=== PATIENT | male | born 1950 | race Caucasian/White ===

== ENCOUNTER 2020-03-01 09:49 | Outpatient (CLI) | payer OTHER, SELFPAY ==
[2020-03-01 10:41] LABS: Alanine Aminotransferase 24 U/L (4-50); Albumin Level 4.2 g/dL (3.5-5.1); Alkaline Phosphatase 77 U/L (38-126); Aspartate Amino Transferase 28 U/L (17-59); Bilirubin,Total 0.4 mg/dL (0.2-1.3); Blood Urea Nitrogen 10 mg/dL (9-20); Calcium 8.4 mg/dL (8.4-10.2); Carbon Dioxide 25 mmol/L (22-30); Chloride 107 mmol/L (98-107); Cholesterol 189 mg/dL (0-200); Estimated Glomerular Filt Rate > 60; Glucose 88 mg/dL (75-110); HDL Direct 54 mg/dL; Potassium 4.6 mmol/L (3.4-5.0); Sodium 138 mmol/L (137-145); Triglycerides 73 mg/dL (<150)
[2020-03-01 10:51] LABS: LDL Cholesterol Direct 120 mg/dL
[2020-03-01 11:09] LABS: Prostate Specific Antigen < 0.1 ng/mL (< OR = 4.0)
== END 2020-03-01 09:50 | disposition home or self-care (01) ==
PROVIDERS: PCP Internal Medicine; Visit Provider Nurse Practitioner
DX: E78.5 Hyperlipidemia, unspecified (principal); Z85.46 Personal history of malignant neoplasm of prostate
CPT/HCPCS: 36415; 80053; 80061; 84153

== ENCOUNTER 2020-04-20 07:38 | Outpatient (CLI) | payer OTHER, SELFPAY ==
--- NOTE | ~2020-04-20 | XR_ITS ---
EXAMINATION: XR shoulder RT min 2V DATE: 04/20/2020 07:59 INDICATION: Right shoulder pain. TECHNIQUE: 4 views of right shoulder were obtained. COMPARISON: None. FINDINGS: Bone alignment is normal. No fracture. There is mild osteoarthritis of glenohumeral joint a nd severe osteoarthritis of acromioclavicular joint. IMPRESSION: 1. Polyarticular osteoarthritis. Reviewed, dictated and finalized at location A.
--- NOTE | ~2020-04-20 | CT_ITS ---
EXAMINATION: CT lung screening EXAM DATE: 04/20/2020 08:06 INDICATION: Personal history of nicotine dependence. TECHNIQUE: Spiral low dose CT of the chest without contrast. Axial, coronal and sagittal images were reviewed. The dose-length product (DLP) for this examination was 81.59 mGy-cm. The exposure was ta ilored according to patient size (auto mA exposure control), and iterative reconstruction (ASIR) was used as additional dose reduction technique. There is no prior study for comparison. FINDINGS: There are 3 mm right lower lobe nodule on image 63 and 4 mm groundglass nodule on image 70 . Some linear right middle lobe scarring. There is mild to moderate emphysema and hyperinflation. Tra cheobronchial tree is patent. There is no mediastinal, hilar or axillary lymphadenopathy. There a re no pleural or pericardial effusions. There is no pneumothorax. Heart normal in size. There i s mild to moderate coronary arterial calcification, arterial sclerosis. There is duodenal diverticulu m. There is mild thoracic spondylosis without osteoblastic or osteolytic lesions identified. Old lef t 5th and 6th rib fractures posteromedially. IMPRESSION: Lung-RADS category 2, benign appearance or behavior (<1% chance of malignancy); recommend continued LDCT screening in 1 year. > Reviewed, dictated and finalized at location A.
== END 2020-04-20 07:39 | disposition home or self-care (01) ==
PROVIDERS: PCP Internal Medicine; Visit Provider Internal Medicine
DX: Z12.2 Encounter for screening for malignant neoplasm of respiratory organs (principal); Z87.891 Personal history of nicotine dependence; M19.011 Primary osteoarthritis, right shoulder
CPT/HCPCS: 73030; G0297

== ENCOUNTER 2020-06-30 14:41 | Outpatient (CLI) | payer OTHER, SELFPAY ==
--- NOTE | ~2020-06-30 | XR_ITS ---
EXAMINATION: XR wrist RT min 3V DATE: 06/30/2020 15:17 INDICATION: Chronic right wrist pain. Osteoarthritis. TECHNIQUE: 4 views of right wrist were obtained. COMPARISON: None. FINDINGS: Bone alignment is normal. No fracture. There is severe osteoarthritis of triscaphe joint an d mild osteoarthritis of first carpometacarpal joint and first and third metacarpophalangeal joints. IMPRESSION: 1. Polyarticular osteoarthritis. Reviewed, dictated and finalized at location A.
--- NOTE | ~2020-06-30 | XR_ITS ---
EXAMINATION: XR wrist LT min 3V DATE: 06/30/2020 15:17 INDICATION: Chronic left wrist pain. Osteoarthritis. TECHNIQUE: 4 views of left wrist were obtained. COMPARISON: None. FINDINGS: There is dorsal tilt of lunate, consistent with dorsal intercalated segmental instability. There is an old fracture of proximal pole of scaphoid with nonunion. The proximal fracture fragment d emonstrates bone loss and is small. There is severe osteoarthritis of radioscaphoid joint and mild os teoarthritis of lunate-capitate joint. There is mild osteoarthritis of first carpometacarpal joint an d first and third metacarpophalangeal joints. IMPRESSION: 1. Scaphoid nonunion advanced collapse (SNAC). Reviewed, dictated and finalized at location A.
== END 2020-06-30 14:42 | disposition home or self-care (01) ==
PROVIDERS: PCP Internal Medicine; Visit Provider Plastic Surgery
DX: M19.031 Primary osteoarthritis, right wrist (principal); M19.032 Primary osteoarthritis, left wrist
CPT/HCPCS: 73110

== ENCOUNTER 2020-07-26 09:50 | Outpatient (CLI) | payer OTHER, SELFPAY ==
--- NOTE | 2020-07-26 11:30 | NEURO_ITS ---
Patient Number: [id number] Impression: # Complains of numbness of hands, left more than right. # Left Carpal Tunnel Syndrome. # Bilateral ulnar neuropathy around the elbows. # Abnormal needle/EMG exam. # Clinical correlation recommended. Nerve Conduction Studies Anti Sensory Summary Table Stim Site NR Peak (ms) P-T Amp (?V) Site1 Site2 Delta-P (ms) Dist (cm) Roberto (m/s) Left Median Anti Sensory (2-3nd Digit) Wrist 3.8 46.2 Wrist 2-3nd Digit 3.8 14.0 37 Wrist 3.9 23.2 Wrist 2-3nd Digit 3.8 14.0 37 Right Median Anti Sensory (2-3nd Digit) Wrist 3.3 45.0 Wrist 2-3nd Digit 3.3 14.0 42 Wrist 3.3 49.4 Wrist 2-3nd Digit 3.3 14.0 42 Left Radial Anti Sensory (Base 1st Digit) Wrist 2.0 30.0 Wrist Base 1st Digit 2.0 0.0 Right Radial Anti Sensory (Base 1st Digit) Wrist 2.4 18.0 Wrist Base 1st Digit 2.4 0.0 Left Ulnar Anti Sensory (5th Digit) Wrist 2.4 55.4 Wrist 5th Digit 2.4 14.0 58 Right Ulnar Anti Sensory (5th Digit) Wrist 2.6 49.0 Wrist 5th Digit 2.6 14.0 54 Motor Summary Table Stim Site NR Onset (ms) O-P Amp (mV) Site1 Site2 Delta-0 (ms) Dist (cm) Roberto (m/s) Left Median Motor (Abd Poll Brev) Wrist 4.6 2.1 Elbow Wrist 4.5 26.0 58 Elbow 9.1 2.5 Right Median Motor (Abd Poll Brev) Wrist 3.1 1.5 Elbow Wrist 4.5 25.0 56 Elbow 7.6 0.6 Left Ulnar Motor (Abd Dig Minimi) Wrist 2.7 7.1 A Elbow Wrist 5.3 26.0 49 A Elbow 8.0 5.8 B Elbow Wrist 4.1 23.0 56 B Elbow 6.8 6.0 Right Ulnar Motor (Abd Dig Minimi) Wrist 2.2 4.8 A Elbow Wrist 5.5 27.0 49 A Elbow 7.7 4.4 B Elbow Wrist 3.9 19.0 49 B Elbow 6.1 4.0 F Wave Studies NR F-Lat (ms) L-R F-Lat (ms) Left Median (Mrkrs) (Abd Poll Brev) 29.73 0.45 Right Median (Mrkrs) (Abd Poll Brev) 29.28 0.45 Left Ulnar (Mrkrs) (Abd Dig Min) 29.30 0.98 Right Ulnar (Mrkrs) (Abd Dig Min) 30.28 0.98 EMG Side Muscle Nerve Root Ins Act Fibs Amp Dur Recrt Comment Right 1stDorInt Ulnar C8-T1 Nml Nml Nml Nml Nml Right Ext Indicis Radial (Post Int) C7-8 Nml Nml Nml Nml Nml Right Ext Digitorum Radial (Post Int) C7-8 Nml Nml Nml Nml Nml Right BrachioRad Radial C5-6 Nml Nml Nml Nml Nml Right PronatorTeres Median C6-7 Nml Nml Nml Nml Nml Right Abd Poll Brev Median C8-T1 Nml Nml Nml Nml Nml Left 1stDorInt Ulnar C8-T1 Nml Nml Nml >12ms Reduced Left Ext Indicis Radial (Post Int) C7-8 Nml Nml Nml Nml Nml Left Ext Digitorum Radial (Post Int) C7-8 Nml Nml Nml Nml Nml Left BrachioRad Radial C5-6 Nml Nml Nml Nml Nml Left PronatorTeres Median C6-7 Nml Nml Nml Nml Nml Left Abd Poll Brev Median C8-T1 Nml Nml Nml >12ms Reduced Right ABD Dig Min Ulnar C8-T1 Nml Nml Nml Nml Nml Left ABD Dig Min Ulnar C8-T1 Nml Nml Nml >12ms Reduced MTDD
== END 2020-07-26 09:51 | disposition home or self-care (01) ==
PROVIDERS: PCP Internal Medicine; Visit Provider Plastic Surgery
DX: G56.02 Carpal tunnel syndrome, left upper limb (principal); G56.23 Lesion of ulnar nerve, bilateral upper limbs
CPT/HCPCS: 95886; 95911

== ENCOUNTER 2020-08-31 07:45 | Outpatient (CLI) | payer OTHER, MEDICARE, SELFPAY ==
--- NOTE | 2020-08-31 07:56 | ECG_ITS ---
Measurements Intervals [place] Rate: 55 P: -21 KS: 149 QRS: -45 QRSD: 84 T: 30 QT: 417 QTc: 402 Interpretive Statements SINUS BRADYCARDIA RSR' IN V1 OR V2, CONSIDER RIGHT VENTRICULAR HYPERTROPHY OR RIGHT VCD LEFT ANTERIOR FASCICULAR BLOCK BASELINE ARTIFACT- I, II, III, AVR, AVL, AVF, V1-V2 ABNORMAL ECG Electronically Signed On 08-31-2020 8:32:31 [employer] OPERATOR by Eliecer Schmidt D.O.
== END 2020-08-31 07:46 | disposition home or self-care (01) ==
PROVIDERS: PCP Internal Medicine; Visit Provider Plastic Surgery
DX: Z01.818 Encounter for other preprocedural examination (principal); F17.200 Nicotine dependence, unspecified, uncomplicated; I44.4 Left anterior fascicular block
CPT/HCPCS: 93005

== ENCOUNTER 2020-09-02 00:40 | Outpatient (CLI) | payer OTHER, MEDICARE, SELFPAY ==
[2020-09-02 19:13] LABS: SARS-CoV-2 RNA PCR Negative
== END 2020-09-02 00:41 | disposition home or self-care (01) ==
LOC: ANHCOVIDDT 00:41
PROVIDERS: PCP Internal Medicine; Visit Provider Plastic Surgery
DX: Z01.818 Encounter for other preprocedural examination (principal); Z20.828 Contact with and (suspected) exposure to other viral communicable diseases
CPT/HCPCS: 87635; C9803; U0003

== ENCOUNTER 2020-09-06 01:04 | Day surgery (SDC) | payer OTHER, MEDICARE, SELFPAY ==
[2020-08-30 14:36] VITALS: BMI 24.8
--- NOTE | 2020-09-05 09:52 | WPDANESEPPF ---
Anes - Initial Pre Proc Eval Procedure: Operation Date: 09/06/20 08:30 Proposed Procedures p Left Open Carpal Tunnel Release, Left Ulnar Neuroplasty At The Elbow - Frandy Gunderson MD Date/Time: 09/05/20 09:52 Surgeon: Frandy Gunderson MD Pre Op Diagnosis: Left Carpal & Cubital Tunnel Syndrome Patient Data Age: 70 Gender: M Height: 1.63 m Weight: 65.77 kg Allergies Allergy/AdvReac Type Severity Reaction Status Date / Time No Known Allergies Allergy Unknown Verified 08/30/20 14:15 Home Medications Medication Instructions Recorded Confirmed Type multivitamin 1 tablet PO DAILY 09/17/19 08/30/20 History sildenafil 100 mg tablet 100 mg PO PRN PRN 09/17/19 08/30/20 History diazepam 5 mg PO PRN PRN 08/30/20 08/30/20 History dextroamphetamine-amphetamine 10 10 mg PO BID #60 tablet 08/31/20 Rx mg tablet Patient hx anesthesia problems: none Family hx anesthesia problems: none PMFSH Past Medical History Medical History (Updated 09/05/20 @ 09:53 by Matthew Chaves MD) Alcohol abuse, uncomplicated Attention-deficit hyperactivity disorder, unspecified type (02/16/19) Enlarged prostate without lower urinary tract symptoms (luts) Gastroesophageal reflux disease History of prostate cancer Hyperlipidemia, unspecified Major depressive disorder, single episode, unspecified Nicotine dependence, unspecified, uncomplicated PTSD (post-traumatic stress disorder) Pure hypercholesterolemia Unspecified viral hepatitis C without hepatic coma Surgical History Surgical History H/O colonoscopy H/O esophagogastroduodenoscopy Social History Social History Smoking packs per day: 1 Smoking cigarettes per day: 20.0 Years smoked: 40 Smoking pack-years: 40.00 Smoking status: Current every day smoker Tobacco type: cigarettes Alcohol intake: current Drinks per week: 12 Substance use: current Substance use type: marijuana Other substance usage details: MARIJUANA DAILY FOR 3 YRS Living arrangements: with family Spiritual care concerns: No Anes - Eval Final PreProcedure Day of Procedure 09/05/20 09:52 Patient weight: normal Heart: regular rate and rhythm Lungs: clear to auscultation and normal air movement Airway: Mallampati scale class II Neurological: alert and oriented Last oral intake: >/= 8 hours ASA classification: III Emergent: no Anesthetic plan: proceed Anesthesia type and monitoring: general GIVS and LMA Informed Consent: The patient's anesthetic plan and its attendant risks and benefits were discussed with the patient/family/POA. Questions were solicited and answers provided to the satisfaction of the patient/family/POA.
[2020-09-06 06:24] VITALS: BP 116/62; PULSE 69; RESP 20; TEMP 35.9; O2SAT 98
[2020-09-06] MEDS: LACTATED RINGERS 1,000 ML 30 ML IV CONT (06:56)
--- NOTE | 2020-09-06 07:06 | WPDHPUPDATE1 ---
History and Physical Update Update Date/Time: 09/06/20 07:06 History and Physical has been reviewed, including an updated exam of the patient. There are NO changes in the patient's condition. Risks, benefits, and alternatives have been discussed and questions answered. Patient agrees to proceed with procedure.
[2020-09-06] MEDS: LIDO 1%/EPINEPHRINE 1:100,000 20 ML VIAL 10 ML INFILTRATE (08:53)
[2020-09-06] MEDS: BACITRACIN OINTMENT 15 GM TUBE 1 APPLIC TOPICAL (08:54)
--- NOTE | 2020-09-06 09:37 | PM.OP ---
Procedure Note - Brief Procedure Note - Brief Date of procedure: 09/06/20 Pre-op diagnosis: Left Carpal & Cubital Tunnel Syndrome Post-op diagnosis: same Procedure performed: Left open carpal tunnel release. L anterior transposition of ulnar nerve at the elbow. Anesthesia: MAC Surgeon: Frandy Gunderson MD Estimated blood loss (mL): 3 Tourniquet time (min): 50 Drains: No Packing: No Pathology: none sent Complications: No immediate complications Condition: stable Disposition: same day
[2020-09-06 10:05] VITALS: BP 86/55; PULSE 72; RESP 16; O2SAT 98
[2020-09-06 10:35] VITALS: BP 104/58; PULSE 53; RESP 16
--- NOTE | 2020-09-06 11:20 | P.OP_ITS ---
Procedure Note - Detailed Date of procedure: 09/06/20 Pre-op diagnosis: Left Carpal & Cubital Tunnel Syndrome Post-op diagnosis: same Procedure performed: Left open carpal tunnel release and left subcutaneous anterior transposition of the ulnar nerve at the elbow Description of procedure: The patient's arm was marked in holding area both sites he was taken to the operating room and placed supine on the operating table. A time-out was held and confirmed. The he was given sedation anesthesia. The extremity was prepped draped in usual fashion. The tourniquet was applied. The site was marked on the palm and at the elbow for incisions both sites were infiltrated with 1% lidocaine with epinephrine. The tourniquet was plated to 250 mmHg. The carpal release was done 1st with incision in the palm as marked blunt dissection through the subcutaneous tissue to the palmar fascia and incision through that and the carpal ligament. This was done under 3 point retraction. The ligaments divided distally and proximally for complete release. No unusual anatomy was noted. The skin was closed with interrupted 4- 0 nylon suture. Attention was turned to the left elbow this was supported on folded towels. Incision was made as marked and dissection was carried through the subcutaneous tissue which is fairly thin, the ulnar nerve was identified right away sitting on top the medial epicondyle. The triceps had replaced it in the ulnar groove. It was determined then to transpose this nerve and dissection was carried carefully along the nerve for considerable distance proximally and distally. A large vascular structure was maintained against the nerve the skin flaps elevated over the medial epicondyle. The intermuscular septum was divided proximally. The flexor fascia was divided distally. The nerve was transposed into its new pocket a small fascial flap had been designed off the medial epicondyle and this was used to reinforce the new position. Suturing was done with 3-0 Monocryl on the flap. 3-0 Monocryl was used a cross hatching marked for the dermis and 3-0 Monocryl was used for running internal dermal suture to close the skin. Bleeding points were electrocoagulated prior to closure. The most prominent point of compression appeared to be immediately distal to the medial epicondyle. The patient is discharge instructions in wound care and follow-up he has a prescription for hydrocodone 5/325. Surgeon: Frandy Gunderson MD
== END 2020-09-06 11:05 | disposition home or self-care (01) ==
PROVIDERS: PCP Internal Medicine; Visit Provider Plastic Surgery
PROC: (CPT 64721; principal; 2020-09-06 08:30)
DX: G56.02 Carpal tunnel syndrome, left upper limb (principal); G56.22 Lesion of ulnar nerve, left upper limb; F90.9 Attention-deficit hyperactivity disorder, unspecified type; N40.0 Benign prostatic hyperplasia without lower urinary tract symptoms; L21.9 Seborrheic dermatitis, unspecified; E78.5 Hyperlipidemia, unspecified; F32.9 Major depressive disorder, single episode, unspecified; F43.10 Post-traumatic stress disorder, unspecified; B19.20 Unspecified viral hepatitis C without hepatic coma; F17.210 Nicotine dependence, cigarettes, uncomplicated; F12.90 Cannabis use, unspecified, uncomplicated; Z85.46 Personal history of malignant neoplasm of prostate
CPT/HCPCS: 64721; 64718; A9270; J1170; J2250; J2405; J2704; J3010; J7120

== ENCOUNTER 2020-12-04 17:09 | Outpatient (CLI) | payer MEDICARE, SELFPAY | END 2020-12-04 17:10 | disposition home or self-care (01) | LOC: ANHCOVIDVC 17:09 | PROVIDERS: PCP Internal Medicine | DX: Z23 Encounter for immunization (principal) | CPT/HCPCS: 0001A; 91300 ==

== ENCOUNTER 2020-12-25 17:08 | Outpatient (CLI) | payer MEDICARE, SELFPAY | END 2020-12-25 17:09 | disposition home or self-care (01) | LOC: ANHCOVIDVC 17:08 | PROVIDERS: PCP Internal Medicine | DX: Z23 Encounter for immunization (principal) | CPT/HCPCS: 0002A; 91300 ==

== ENCOUNTER 2021-02-02 09:18 | Outpatient (CLI) | payer MEDICARE, SELFPAY ==
[2021-02-02 10:24] LABS: Alanine Aminotransferase 20 U/L (4-50); Albumin Level 4.1 g/dL (3.5-5.1); Alkaline Phosphatase 61 U/L (38-126); Anion Gap 3 mmol/L (8-16); Aspartate Amino Transferase 28 U/L (17-59); Bilirubin,Total 0.4 mg/dL (0.2-1.3); Blood Urea Nitrogen 6 mg/dL (9-20); Carbon Dioxide 29 mmol/L (22-30); Chloride 109 mmol/L (98-107); Cholesterol 177 mg/dL (0-200); Estimated Glomerular Filt Rate > 60; Glucose 95 mg/dL (75-110); HDL Direct 44 mg/dL; Potassium 4.9 mmol/L (3.4-5.0); Sodium 141 mmol/L (137-145); Triglycerides 145 mg/dL (<150)
[2021-02-02 10:33] LABS: LDL Cholesterol Direct 104 mg/dL
[2021-02-02 10:51] LABS: Prostate Specific Antigen < 0.1 ng/mL (< OR = 4.0)
== END 2021-02-02 09:19 | disposition home or self-care (01) ==
PROVIDERS: PCP Internal Medicine; Visit Provider Internal Medicine
DX: E78.5 Hyperlipidemia, unspecified (principal); F10.11 Alcohol abuse, in remission; Z12.5 Encounter for screening for malignant neoplasm of prostate
CPT/HCPCS: 36415; 80053; 80061; 84153; G0103

== ENCOUNTER 2021-04-12 08:12 | Outpatient (CLI) | payer MEDICARE, SELFPAY ==
--- NOTE | ~2021-04-12 | CT_ITS ---
EXAMINATION: CT lung screening EXAM DATE: 04/12/2021 10:03 INDICATION: Z87.891 - Personal history of nicotine dependence. TECHNIQUE: Spiral low dose CT of the chest without contrast. Axial, coronal and sagittal images were reviewed. The dose-length product (DLP) for this examination was 65.56 mGy-cm. The exposure was ta ilored according to patient size (auto mA exposure control), and iterative reconstruction (ASIR) was used as additional dose reduction technique. Comparison is made to prior examination from . FINDINGS: Previously seen 3 and 4 mm right lower lobe nodules are unchanged, consistent with noncalc ified granulomata. No new or suspicious pulmonary nodules. There is mild emphysema and moderate hyper inflation. Tracheobronchial tree is patent. There is no mediastinal, hilar or axillary lymphadenop athy. There are no pleural or pericardial effusions. There is no pneumothorax. Heart normal in size. There is mild to moderate coronary arterial calcification, arterial sclerosis. Upper abdomen is unremarkable. There is thoracic spondylosis without osteoblastic or osteolytic lesions identifie d. IMPRESSION: Lung-RADS category 2, benign appearance or behavior (<1% chance of malignancy); recommend continued LDCT screening in 1 year. Reviewed, dictated and finalized at location B.
--- NOTE | 2021-04-12 09:00 | EST_ITS ---
Patient Info Name: Mark Fairbanks Age: 70 years : 1950 Gender: Male Ht: 64 in Wt: 145 lbs BSA: 1.73 m2 Exam Date: 04/12/2021 9:10 AM Exam Location: [facility] Stress Patient Status: Outpatient Admit Date: 04/12/2021 Staff Ordering Physician: Lynne Uriarte Attending Provider: Lynne Uriarte Exercise Technologist: Blanca Gimenez RDCS Exercise Physician: Eliecer cShmidt DO Exam Type: CA stress test treadmill Study Info Indications R07.9 - Chest pain, unspecified A treadmill exercise stress test was performed. Summary 1. 1. Inconclusive Dimitry exercise stress test for ischemic ST changes by ECG criteria due to achieving only 62% MPHR for age group. 2. 2. Good functional capacity, achieving 7 METs of workload. 3. 3. Chronotropic incompetence achieving only 62% MPHR for age group at 93 bpm. 4. 4. No imaging with stress testing. 5. 5. Patient informed of the above results. Protocol: Dimitry Stress ECG Details Stage: REST Duration (min): 5 min : 50 sec Speed (mph): 0.0 Grade (%): 0 HR (bpm): 68 SBP (mmHg): 107 DBP (mmHg): 75 METS: --- Stage: REST Duration (min): 22 min : 53 sec Speed (mph): 0.0 Grade (%): 0 HR (bpm): 68 SBP (mmHg): 107 DBP (mmHg): 75 METS: --- Stage: STAGE 1 Duration (min): 1 min : 0 sec Speed (mph): 1.7 Grade (%): 10 HR (bpm): 78 SBP (mmHg): 107 DBP (mmHg): 75 METS: --- Stage: STAGE 1 Duration (min): 2 min : 0 sec Speed (mph): 1.7 Grade (%): 10 HR (bpm): 80 SBP (mmHg): 107 DBP (mmHg): 75 METS: --- Stage: STAGE 1 Duration (min): 3 min : 0 sec Speed (mph): 1.7 Grade (%): 10 HR (bpm): 83 SBP (mmHg): 124 DBP (mmHg): 72 METS: --- Stage: STAGE 2 Duration (min): 1 min : 0 sec Speed (mph): 2.5 Grade (%): 12 HR (bpm): 86 SBP (mmHg): 124 DBP (mmHg): 72 METS: --- Stage: STAGE 2 Duration (min): 2 min : 0 sec Speed (mph): 2.5 Grade (%): 12 HR (bpm): 89 SBP (mmHg): 143 DBP (mmHg): 57 METS: --- Stage: STAGE 2 Duration (min): 3 min : 0 sec Speed (mph): 2.5 Grade (%): 12 HR (bpm): 90 SBP (mmHg): 143 DBP (mmHg): 57 METS: --- Stage: STAGE 3 Duration (min): 0 min : 13 sec Speed (mph): 3.4 Grade (%): 14 HR (bpm): 91 SBP (mmHg): 143 DBP (mmHg): 57 METS: --- Stage: RECOVERY Duration (min): 0 min : 46 sec Speed (mph): 0.0 Grade (%): 0 HR (bpm): 90 SBP (mmHg): 135 DBP (mmHg): 59 METS: --- Stage: RECOVERY Duration (min): 1 min : 46 sec Speed (mph): 0.0 Grade (%): 0 HR (bpm): 83 SBP (mmHg): 135 DBP (mmHg): 59 METS: --- Stage: RECOVERY Duration (min): 2 min : 46 sec Speed (mph): 0.0 Grade (%): 0 HR (bpm): 76 SBP (mmHg): 127 DBP (mmHg): 66 METS: --- Stage: RECOVERY Duration (min): 3
== END 2021-04-12 08:13 | disposition home or self-care (01) ==
LOC: ANHCARD 08:14
PROVIDERS: PCP Internal Medicine; Visit Provider Nurse Practitioner
DX: R07.9 Chest pain, unspecified (principal); F17.210 Nicotine dependence, cigarettes, uncomplicated
CPT/HCPCS: 71271; 93017

== ENCOUNTER 2021-05-11 08:35 | Outpatient (CLI) | payer MEDICARE, SELFPAY ==
--- NOTE | ~2021-05-11 | NM_ITS ---
EXAMINATION: NM wayne stress w perfusion DATE: 05/11/2021 10:50 INDICATION: Chest pain. TECHNIQUE: Rest images were obtained following intravenous administration of 9.5 mCi Tc99m tetrofosmi n (Myoview). The patient was infused intravenously with Lexiscan (regadenoson). Then, 30.8 mCi Tc99m tetrofosmin (Myoview) was administered intravenously, and stress images were obtained. Data was recon structed into short axis and horizontal and vertical long axis SPECT images. Gated SPECT images were also obtained. COMPARISON: Myocardial perfusion imaging 12/28/2013, chest CT 04/12/2021 FINDINGS: There is no definite reversible or fixed perfusion abnormality to suggest ischemia or infar ction. There is no segmental wall motion abnormality. Left ventricular ejection fraction measures 6 9%. IMPRESSION: 1. No definite ischemia or infarct. 2. Normal left ventricular ejection fraction measuring 69%. Reviewed, dictated and finalized at location A.
--- NOTE | 2021-05-11 08:20 | EST_ITS ---
Patient Info Name: Mark Fairbanks Age: 70 years : 1950 Gender: Male Ht: 64 in Wt: 145 lbs BSA: 1.73 m2 Heart Rhythm: Sinus Rhythm Exam Date: 05/11/2021 9:33 AM Exam Location: [facility] Stress Patient Status: Outpatient Admit Date: 05/11/2021 Staff Ordering Physician: Del Monreal DO Attending Provider: Lynne Uriarte Exercise Technologist: Blanca Gimenez RDCS Exercise Physician: Jaylon Zavala MD Exam Type: CA stress wayne w NM Study Info Indications R07.9 - Chest pain, unspecified A regadenoson stress test was performed. Summary 1. No abnormal ST/T wave changes with Lexiscan. 2. No arrhythmias were observed during the examination. 3. Please correlate with nuclear medicine images, reported separately. 4. Brief self-limited chest pain with Lexiscan infusion. Protocol: Lexiscan Stress ECG Details Stage: REST Duration (min): 2 min : 34 sec HR (bpm): 56 SBP (mmHg): 118 DBP (mmHg): 79 Stage: REST Duration (min): 6 min : 24 sec HR (bpm): 62 SBP (mmHg): 118 DBP (mmHg): 79 Stage: STAGE 1 Duration (min): 0 min : 59 sec HR (bpm): 73 SBP (mmHg): 126 DBP (mmHg): 84 Stage: RECOVERY Duration (min): 1 min : 0 sec HR (bpm): 81 SBP (mmHg): 118 DBP (mmHg): 81 Stage: RECOVERY Duration (min): 2 min : 0 sec HR (bpm): 82 SBP (mmHg): 118 DBP (mmHg): 81 Stage: RECOVERY Duration (min): 3 min : 0 sec HR (bpm): 76 SBP (mmHg): 124 DBP (mmHg): 77 Stage: RECOVERY Duration (min): 3 min : 4 sec HR (bpm): 75 SBP (mmHg): 124 DBP (mmHg): 77 Rest HR: 62 bpm Peak HR: 82 bpm Rest Sys BP: 118 mmHg Peak Sys BP: 126 mmHg Max Pred HR: 148 bpm % Max Pred HR: 55 % Target HR: 126 bpm Max RPP: 10,332 bpm*mmHg Termination Reason: Completed protocol Cardiac Symptoms: Chest pain Total Time: 1 min : 0 sec Rest Blevins BP: 79 mmHg Peak Blevins BP: 84 mmHg Total Dose: 0.4 mg Resting ECG Sinus bradycardia. Stress ECG No abnormal ST/T wave changes with Lexiscan. Arrhythmias No arrhythmias were observed during the examination. Report Signatures
== END 2021-05-11 08:36 | disposition home or self-care (01) ==
LOC: ANHCARD 08:36
PROVIDERS: PCP Internal Medicine; Visit Provider Nurse Practitioner
DX: R07.9 Chest pain, unspecified (principal)
CPT/HCPCS: 78452; 93017; A9502; J2785

== ENCOUNTER 2022-04-08 08:36 | Outpatient (CLI) | payer MEDICARE, SELFPAY ==
[2022-04-08 09:05] LABS: Alanine Aminotransferase 25 U/L (6-50); Albumin Level 4.1 g/dL (3.5-5.1); Alkaline Phosphatase 69 U/L (38-126); Anion Gap 5 mmol/L (8-16); Aspartate Amino Transferase 25 U/L (17-59); Bilirubin,Total 0.3 mg/dL (0.2-1.3); Blood Urea Nitrogen 14 mg/dL (9-20); Calcium 8.6 mg/dL (8.4-10.2); Carbon Dioxide 27 mmol/L (22-30); Chloride 106 mmol/L (98-107); Cholesterol 174 mg/dL (0-200); Estimated Glomerular Filt Rate > 60; Glucose 95 mg/dL (65-110); HDL Direct 42 mg/dL; Potassium 4.7 mmol/L (3.4-5.0); Sodium 138 mmol/L (137-145); Triglycerides 65 mg/dL (<150)
[2022-04-08 09:17] LABS: LDL Cholesterol Direct 99 mg/dL
[2022-04-08 09:34] LABS: Prostate Specific Antigen < 0.1 ng/mL (< OR = 4.0)
== END 2022-04-08 08:37 | disposition home or self-care (01) ==
PROVIDERS: PCP Internal Medicine; Visit Provider Internal Medicine
DX: E78.5 Hyperlipidemia, unspecified (principal); F10.11 Alcohol abuse, in remission; Z85.46 Personal history of malignant neoplasm of prostate
CPT/HCPCS: 36415; 80053; 80061; 84153

== ENCOUNTER 2022-05-14 07:57 | Outpatient (CLI) | payer MEDICARE, SELFPAY ==
--- NOTE | ~2022-05-14 | XR_ITS ---
MODIFIED ESOPHAGRAM HISTORY: Dysphagia. TECHNIQUE: Modified barium esophagram was performed on 05/14/2022. I administered fluoroscopy and perf ormed the exam with speech pathologist. Patient was seated for lateral fluoroscopic imaging for alexi stion of thin liquids, pudding, solids and quantified amounts, followed by thin liquids in uncontroll ed amounts. This was recorded on tape. A single fluoroscopic spot image was also recorded. The DAP fo r this procedure was 1.177 Gycm2. The amount of fluoroscopy time used during this procedure was 1.7 m inutes. FINDINGS: Oral stage: Adequate function. Pharyngeal stage: Adequate function. Small amount of vallecular residue which was cleared with subseq uent dry swallows. Moderate cervical spondylosis with anterior endplate osteophytes which exerts mild mass effect upon the posterior wall of the pharynx and hypopharynx. Cervical/esophageal stage: Adequate function. IMPRESSION: Patient tolerated regular consistency oral feedings in the upright position. Please cherry elate with speech pathologist findings and specific feeding recommendations. Reviewed, dictated and finalized at location A. IMPRESSION: Patient tolerated regular consistency oral feedings in the upright position. Please correlate with speech pathologist findings and specific feedi ng recommendations.
--- NOTE | ~2022-05-14 | CT_ITS ---
EXAMINATION: CT lung screening DATE: 05/14/2022 08:19 INDICATION: History of nicotine dependence TECHNIQUE: Computed tomography (CT) of the chest was performed without intravenous contrast. The dose -length product was 76.58 mGy-cm. Automated exposure control and iterative reconstruction technique w ere employed. COMPARISON: CT dated 04/12/2021 FINDINGS: No significant pleural or pericardial effusion. No thoracic lymphadenopathy. Heart size is normal. There is atherosclerosis of the aorta and coronary arteries. Small low-density lesion in the left kidney, most likely benign cysts. Calcified granuloma in the spleen. Mild emphysema. Right upper lobe atelectasis/scarring anteriorly. No endobronchial lesions. Stable 3-4 mm right lower lobe nodul es. 3 mm left apical nodule unchanged. IMPRESSION: 1. Lung-RADS category 2: Benign appearance or behavior. Continue annual screening with noncontrast lo w-dose chest CT in 12 months. Reviewed, dictated and finalized at location B. IMPRESSION: 1. Lung-RADS category 2: Benign appearance or behavior. Continue annual screeni ng with noncontrast low-dose chest CT in 12 months.
--- NOTE | 2022-05-14 16:41 | STOPEVAL ---
MODIFIED BARIUM SWALLOW EVALUATION: Thank you for referring Mark Fairbanks to [facility] Attending Provider: Del Monreal DO Modified Barium Swallow Evaluation Recent Swallowing History Reports Dysphagia Yes: Every now & then food gets stuck Onset of Dysphagia about 5 years ago History of Dysphagia No Other Factors Impacting Dysphagia None History of Pneumonia No Reported Difficult Consistencies Solids Intake Method Prior to Swallow Oral Evaluation Diet Prior to Swallow Evaluation Regular, Level 7 Liquid Consistency Prior to Swallow Thin (0) Evaluation Consistency Solid Consistency Method of Presentation Spoon Oral Preparatory Symptoms None Oral Phase Symptoms None Pharyngeal Phase Symptoms Within Functional Limits,Bony Protuberance,Residue in Valleculae Severity of Vallecular Residue Mild - 5-25 % Epiglottic Ligament Visable Severity of Pyriform Sinus Residue None - 0% No Residue 8 Point Laryngeal Penetration-Aspiration Material Does Not Enter Airway Scale Pharyngeal Phase Comments residual was cleared with a independent dry swallow Cervical/Esophageal Symptoms None Mixed Consistency Method of Presentation Spoon Oral Preparatory Symptoms None Oral Phase Symptoms None Pharyngeal Phase Symptoms Within Functional Limits,Bony Protuberance,Residue in Valleculae Severity of Vallecular Residue Mild - 5-25 % Epiglottic Ligament Visable Severity of Pyriform Sinus Residue None - 0% No Residue 8 Point Laryngeal Penetration-Aspiration Material Does Not Enter Airway Scale Pharyngeal Phase Comments residual was cleared with a independent dry swallow Cervical/Esophageal Symptoms None Pureed Consistency Method of Presentation Spoon Oral Preparatory Symptoms None Oral Phase Symptoms None Pharyngeal Phase Symptoms Within Functional Limits,Bony Protuberance,Residue in Valleculae Severity of Vallecular Residue Mild - 5-25 % Epiglottic Ligament Visable Severity of Pyriform Sinus Residue None - 0% No Residue 8 Point Laryngeal Penetration-Aspiration Material Does Not Enter Airway Scale Pharyngeal Phase Comments residual was cleared with a independent dry swallow Cervical/Esophageal Symptoms None Thin Uncontrolled 2 Method of Presentation Straw Oral Preparatory Symptoms None Oral Phase Sympto
== END 2022-05-14 07:58 | disposition home or self-care (01) ==
PROVIDERS: PCP Internal Medicine; Visit Provider Internal Medicine
DX: Z12.2 Encounter for screening for malignant neoplasm of respiratory organs (principal); R13.10 Dysphagia, unspecified; Z87.891 Personal history of nicotine dependence
CPT/HCPCS: 71271; 92611

== ENCOUNTER 2022-11-01 09:08 | Outpatient (CLI) | payer MEDICARE, SELFPAY ==
[2022-11-01 10:04] LABS: Alanine Aminotransferase 29 U/L (6-50); Albumin Level 4.3 g/dL (3.5-5.1); Alkaline Phosphatase 63 U/L (38-126); Anion Gap 6 mmol/L (8-16); Aspartate Amino Transferase 26 U/L (17-59); Bilirubin,Total 0.5 mg/dL (0.2-1.3); Blood Urea Nitrogen 13 mg/dL (9-20); Carbon Dioxide 29 mmol/L (22-30); Chloride 107 mmol/L (98-107); Cholesterol 197 mg/dL (0-200); Estimated Glomerular Filt Rate > 60; Glucose 91 mg/dL (65-110); HDL Direct 37 mg/dL; Potassium 4.9 mmol/L (3.4-5.0); Sodium 142 mmol/L (137-145); Triglycerides 115 mg/dL (<150)
[2022-11-01 10:15] LABS: LDL Cholesterol Direct 121 mg/dL
== END 2022-11-01 09:09 | disposition home or self-care (01) ==
LOC: ANHLAB 09:10
PROVIDERS: PCP Internal Medicine; Visit Provider Internal Medicine
DX: E78.5 Hyperlipidemia, unspecified (principal)
CPT/HCPCS: 36415; 80053; 80061

== ENCOUNTER 2022-11-27 09:46 | Outpatient (CLI) | payer MEDICARE, SELFPAY ==
[2022-11-27 10:53] LABS: Prostate Specific Antigen < 0.1 ng/mL (< OR = 4.0)
== END 2022-11-27 09:47 | disposition home or self-care (01) ==
LOC: ANHLAB 09:49
PROVIDERS: PCP Internal Medicine; Visit Provider Nurse Practitioner
DX: Z85.46 Personal history of malignant neoplasm of prostate (principal)
CPT/HCPCS: 36415; 84153

== ENCOUNTER 2023-06-25 16:12 | Outpatient (CLI) | payer MEDICARE, SELFPAY ==
[2023-06-25 16:34] LABS: Basophils Percent Auto 0.5 % (0.2-1.2); Eosinophils Absolute Auto 0.4 K/mm3 (0-0.3); Eosinophils Percent Auto 5.3 % (0-4.4); Hematocrit 42.1 % (42.0-52.0); Hemoglobin 14.1 g/dL (14.0-18.0); Immature Granulocyte Absolute 0.02 K/mm3 (0.00-0.031); Immature Granulocyte Percent A 0.3 % (0-0.5); Lymphocytes Absolute Auto 1.28 K/mm3 (0.9-3.2); Lymphocytes Percent Auto 17.3 % (18.3-44.2); Mean Corpuscular HGB Conc 33.5 g/dl (32-36); Mean Corpuscular Hemoglobin 32.7 pg (26-34); Mean Corpuscular Volume 97.7 fl (80-100); Mean Platelet Volume 10.8 fl (7.4-10.4); Monocytes Absolute Auto 0.4 K/mm3 (0.1-0.6); Monocytes Percent Auto 5.4 % (2.6-8.5); Neutrophils Absolute Auto 5.3 K/mm3 (1.3-6.7); Neutrophils Percent Auto 71.2 % (45.5-73.1); Platelet Count Result 175 k/mm3 (150-375); Red Blood Count 4.31 M/mm3 (4.6-6.20); Red Cell Distribution Width 11.9 % (11.5-14.5); White Blood Count 7.4 K/mm3 (4.5-10.0)
[2023-06-25 16:52] LABS: Alanine Aminotransferase 22 U/L (6-50); Albumin Level 4.1 g/dL (3.5-5.1); Alkaline Phosphatase 71 U/L (38-126); Anion Gap 6 mmol/L (8-16); Aspartate Amino Transferase 26 U/L (17-59); Bilirubin,Total 0.5 mg/dL (0.2-1.3); Blood Urea Nitrogen 8 mg/dL (9-20); Calcium 8.3 mg/dL (8.4-10.2); Carbon Dioxide 27 mmol/L (22-30); Chloride 104 mmol/L (98-107); Estimated Glomerular Filt Rate > 60; Glucose 85 mg/dL (65-110); Potassium 4.3 mmol/L (3.4-5.0); Sodium 137 mmol/L (137-145)
== END 2023-06-25 16:13 | disposition home or self-care (01) ==
PROVIDERS: PCP Family Medicine; Visit Provider Nurse Practitioner Family
DX: E78.5 Hyperlipidemia, unspecified (principal); F10.10 Alcohol abuse, uncomplicated; F10.11 Alcohol abuse, in remission; Z85.46 Personal history of malignant neoplasm of prostate
CPT/HCPCS: 36415; 80053; 85025

== ENCOUNTER 2023-07-09 09:56 | Outpatient (CLI) | payer MEDICARE, SELFPAY ==
[2023-07-09 10:56] LABS: Prostate Specific Antigen < 0.1 ng/mL (< OR = 4.0)
== END 2023-07-09 09:57 | disposition home or self-care (01) ==
PROVIDERS: PCP Family Medicine; Visit Provider Family Medicine
DX: Z85.46 Personal history of malignant neoplasm of prostate (principal); Z12.5 Encounter for screening for malignant neoplasm of prostate
CPT/HCPCS: 36415; 84153; G0103

== ENCOUNTER 2023-07-10 13:39 | Outpatient (CLI) | payer MEDICARE, SELFPAY ==
--- NOTE | ~2023-07-10 | CT_ITS ---
EXAMINATION: CT lung screening DATE: 07/10/2023 13:59 INDICATION: Personal history nicotine dependence, current smoker with 50 pack year history TECHNIQUE: Computed tomography (CT) of the chest was performed without intravenous contrast. The dose -length product (DLP) was 75.96 mGy-cm. Automated exposure control and iterative reconstruction techn [employer] were employed. COMPARISON: 05/14/2020 FINDINGS: There are stable 3 mm nodules of the right lower lobe. There are stable nodules of the left lower lobe measuring 2 mm. There is mild emphysema. Calcified mediastinal and left hilar lymph nodes are consistent with old granulomatous disease. No pleural effusion or pneumothorax. The lungs are fr ee of acute opacities. No pathologically enlarged thoracic lymph nodes are identified. The heart size is normal. Calcified coronary artery atherosclerosis is noted. There is moderate thoracic spondylosi s. IMPRESSION: 1. Lung-RADS category 2: Benign appearance or behavior. Continue annual screening with noncontrast lo w-dose chest CT in 12 months. Reviewed, dictated and finalized at location L. IMPRESSION: 1. Lung-RADS category 2: Benign appearance or behavior. Continue annual screeni ng with noncontrast low-dose chest CT in 12 months.
== END 2023-07-10 13:40 | disposition home or self-care (01) ==
LOC: ANHIMG 13:40
PROVIDERS: PCP Family Medicine; Visit Provider Family Medicine
DX: Z12.2 Encounter for screening for malignant neoplasm of respiratory organs (principal); Z87.891 Personal history of nicotine dependence
CPT/HCPCS: 71271

== ENCOUNTER 2023-08-15 00:50 | Day surgery (SDC) | payer MEDICARE, SELFPAY ==
[2023-07-31 13:12] VITALS: BMI 24.5
--- NOTE | 2023-08-13 10:19 | SUR.PREOP ---
Patient called regarding upcoming procedure. Reviewed preop instructions, appointment times, and procedure prep.
[2023-08-15 07:40] VITALS: BP 117/74; PULSE 63; RESP 18; TEMP 36.2; O2SAT 98
[2023-08-15] MEDS: LACTATED RINGERS 1,000 ML 150 ML IV CONT (07:54)
--- NOTE | 2023-08-15 08:15 | WPDANESEPPF ---
Anes - Initial Pre Proc Eval Procedure: Operation Date: 08/15/23 08:30 Proposed Procedures p Esophagogastroduodenoscopy - Joseph Briggs MD Date/Time: 08/15/23 08:15 Surgeon: Joseph Briggs MD Pre Op Diagnosis: Dysphagia unspecified Patient Data Age: 72 Gender: M Height: 1.63 m Weight: 63.6 kg Last Vital Signs Temp 97.1 F L 08/15/23 07:40 Pulse 63 08/15/23 07:40 Resp 18 08/15/23 07:40 BP 117/74 08/15/23 07:40 Pulse Ox 98 08/15/23 07:40 O2 Del Method Room Air 08/15/23 07:40 Allergies Allergy/AdvReac Type Severity Reaction Status Date / Time No Known Allergies Allergy Unknown Verified 08/15/23 07:40 Home Medications Medication Instructions Recorded Confirmed Type multivitamin 1 tablet PO DAILY 09/17/19 07/31/23 History sildenafil 100 mg tablet (Viagra) 100 mg PO PRN PRN Erectile 09/17/19 07/31/23 History Dysfunction diazepam 5 mg tablet 5 mg PO BID PRN anxiety #30 tabs 06/11/23 07/31/23 Rx dextroamphetamine-amphetamine ER 20 mg PO QAM #30 caps 07/01/23 07/31/23 Rx 20 mg 24hr capsule,extend release (Adderall XR) Patient hx anesthesia problems: none Family hx anesthesia problems: none Results Review: All pre-operative results and documents have been reviewed as part of the pre-operative evaluation. [facility] Past Medical History Medical History Alcohol abuse, uncomplicated Attention-deficit hyperactivity disorder, unspecified type (02/16/19) Degeneration of lumbar intervertebral disc Enlarged prostate without lower urinary tract symptoms (luts) Gastroesophageal reflux disease Hyperlipidemia, unspecified Major depressive disorder, single episode, unspecified Nicotine dependence, unspecified, uncomplicated Prostate CA PTSD (post-traumatic stress disorder) Pure hypercholesterolemia Unspecified viral hepatitis C without hepatic coma Surgical History Surgical History H/O colonoscopy H/O esophagogastroduodenoscopy History of prostatectomy Social History Social History Smoking packs per day: 0.5 Smoking cigarettes per day: 10.0 Years smoked: 45 Smoking pack-years: 22.50 Smoking status: Current every day smoker Tobacco type: cigarettes Alcohol intake: current Drinks per week: 10 Alcohol use details: social Substance use: current Substance use type: marijuana Other substance usage details: smoking and edibles daily Lack of Transportation: No Lack of Food: Never True Current Housing: I Have Housing Concerned About Future Housing: No Difficulty Paying Gas/Electric Bills: No Difficulty Paying for Meds: No Currently Unemployed: No Education: Bachelor's Degree Difficulty w/ Childcare or Family Care: No Living arrangements: with family Spiritual care concerns: No Anes - Eval Final PreProcedure Day of Procedure 08/15/23 08:15 Patient weight: normal Heart: regular rate and rhythm Lungs: clear to auscultation Airway: Mallampati scale class II Neurological: alert and oriented Last oral intake: >/= 8 hours ASA classification: III Emergent: no Anesthetic plan: proceed Anesthesia type and monitoring: general GIVS and standard monitoring Results Review: All pre-operative results and documents have been reviewed as part of the pre-operative evaluation. Informed Consent: The patient's anesthetic plan and its attendant risks and benefits were discussed with the patient/family/POA. Questions were solicited and answers provided to the satisfaction of the patient/family/POA.
--- NOTE | 2023-08-15 08:22 | PM.HPGS ---
History of Present Illness History of Present Illness Consent: Risks, benefits, and alternatives have been discussed and questions answered. Patient agrees to proceed with procedure. Chief complaint: Dysphagia unspecified Narrative: Mark Fairbanks is a 72 year old male with intermittent dysphagia for few years, never had egd Review of Systems Constitutional: Constitutional: Denies headache(s) and Denies weakness Eyes: Eyes: Denies blurry vision ENT: Reports Normal hearing present, Denies headache(s) and Denies neck pain Cardiovascular: Cardiovascular: Denies chest pain and Denies dyspnea Respiratory: Respiratory: Denies dyspnea Gastrointestinal: Gastrointestinal: Reports no additional gastrointestinal complaints Genitourinary: Genitourinary: Denies dysuria Musculoskeletal: Musculoskeletal: Denies neck pain Integumentary/Breasts: Skin/Breast: Denies dry skin Neurologic: Reports Normal hearing present, Denies headache(s) and Denies weakness Psychiatric: Psychiatric: Denies anxiety Endocrine: Endocrine: Denies change in body appearance Hematologic/Lymphatic: Hematologic/Lymphatic: Denies easy bleeding Allergic/Immunologic: Allergic/Immunologic: Denies urticaria PMFSH Past Medical History Medical History Alcohol abuse, uncomplicated Attention-deficit hyperactivity disorder, unspecified type (02/16/19) Degeneration of lumbar intervertebral disc Enlarged prostate without lower urinary tract symptoms (luts) Gastroesophageal reflux disease Hyperlipidemia, unspecified Major depressive disorder, single episode, unspecified Nicotine dependence, unspecified, uncomplicated Prostate CA PTSD (post-traumatic stress disorder) Pure hypercholesterolemia Unspecified viral hepatitis C without hepatic coma Surgical History Surgical History H/O colonoscopy H/O esophagogastroduodenoscopy History of prostatectomy Social History Social History Smoking packs per day: 0.5 Smoking cigarettes per day: 10.0 Years smoked: 45 Smoking pack-years: 22.50 Smoking status: Current every day smoker Tobacco type: cigarettes Alcohol intake: current Drinks per week: 10 Alcohol use details: social Substance use: current Substance use type: marijuana Other substance usage details: smoking and edibles daily Lack of Transportation: No Lack of Food: Never True Current Housing: I Have Housing Concerned About Future Housing: No Difficulty Paying Gas/Electric Bills: No Difficulty Paying for Meds: No Currently Unemployed: No Education: Bachelor's Degree Difficulty w/ Childcare or Family Care: No Living arrangements: with family Spiritual care concerns: No Meds Home Medications and Allergies Home Medications Medication Instructions Recorded Confirmed Type multivitamin 1 tablet PO DAILY 09/17/19 07/31/23 History sildenafil 100 mg tablet (Viagra) 100 mg PO PRN PRN Erectile 09/17/19 07/31/23 History Dysfunction diazepam 5 mg tablet 5 mg PO BID PRN anxiety #30 tabs 06/11/23 07/31/23 Rx dextroamphetamine-amphetamine ER 20 mg PO QAM #30 caps 07/01/23 07/31/23 Rx 20 mg 24hr capsule,extend release (Adderall XR) Allergies Allergy/AdvReac Type Severity Reaction Status Date / Time No Known Allergies Allergy Unknown Verified 08/15/23 07:40 Vital Signs Vital Signs - 24 hr 08/15/23 07:40 Temperature 97.1 F L Pulse Rate 63 Respiratory Rate 18 Blood Pressure 117/74 Pulse Oximetry 98 Oxygen Delivery Room Air Exam Const: General: comfortable and no acute distress HENMT: Face/Nose/Sinus: Normal nares present Eyes: General: appearance normal, both eyes and all related structures Neck: Neck: no JVD Resp: Auscultation: clear to auscultation bilaterally Cardio: Rate: regular rate R
[2023-08-15] MEDS: BENZOCAINE (*SP) 60 ML SPRAY CAN (HURRICAINE) 1 SPRAY MUCOUS MEM (08:28)
[2023-08-15 08:38] VITALS: BP 97/67; PULSE 69; RESP 18; O2SAT 92
[2023-08-15 08:48] VITALS: BP 91/61; PULSE 65; RESP 18; O2SAT 98
[2023-08-15 08:58] VITALS: BP 96/69; PULSE 64; RESP 18; O2SAT 97
== END 2023-08-15 09:09 | disposition home or self-care (01) ==
PROVIDERS: PCP Family Medicine; Visit Provider Internal Medicine Gastroenterology
PROC: 0DJ08ZZ Inspection of Upper Intestinal Tract, Via Natural or Artificial Opening Endoscopic (ICD-10-PCS; CPT 43235; principal; 2023-08-15 08:30)
DX: K22.2 Esophageal obstruction (principal); F90.9 Attention-deficit hyperactivity disorder, unspecified type; K21.9 Gastro-esophageal reflux disease without esophagitis; F32.9 Major depressive disorder, single episode, unspecified; N52.9 Male erectile dysfunction, unspecified; F43.10 Post-traumatic stress disorder, unspecified; F17.210 Nicotine dependence, cigarettes, uncomplicated; F10.90 Alcohol use, unspecified, uncomplicated; F12.90 Cannabis use, unspecified, uncomplicated; Z79.899 Other long term (current) drug therapy; Z85.46 Personal history of malignant neoplasm of prostate
CPT/HCPCS: 43239; 43249; 88305; C1726; J2704; J7120

== ENCOUNTER 2023-08-22 14:04 | Outpatient (CLI) | payer MEDICARE, SELFPAY ==
--- NOTE | ~2023-08-22 | XR_ITS ---
XR lumbar spine 2-3V DATE: 08/22/2023 14:21 INDICATION: Intervertebral disc degeneration TECHNIQUE: AP, lateral, coned lateral lumbosacral views COMPARISON: 03/29/2019 lumbar spine FINDINGS: There is minimal levoscoliosis. There is multilevel degenerative disc disease, severe at L1-2, moderate at L2-3 with very prominent a nterior spurring and minimal retrolisthesis, mild at L3-4 with approximately 4 mm retrolisthesis, mod erately severe at L4-5 and L5-S1. Included lower thoracic and lumbar pedicles are intact. No fracture or bone destruction is detected. The sacroiliac joints are intact. IMPRESSION: Multilevel degenerative disc disease, moderately advanced since 03/29/2019 Reviewed, dictated and finalized at location A. 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
== END 2023-08-22 14:05 | disposition home or self-care (01) ==
PROVIDERS: PCP Family Medicine; Visit Provider Family Medicine
DX: M51.36 Other intervertebral disc degeneration, lumbar region (principal)
CPT/HCPCS: 72100

== ENCOUNTER 2023-09-26 13:30 | Outpatient (CLI) | payer MEDICARE, SELFPAY ==
--- NOTE | ~2023-09-26 | XR_ITS ---
EXAMINATION: XR hip BI 2V w AP pelvis DATE: 09/26/2023 13:50 INDICATION: Chronic bilateral hip pain TECHNIQUE: AP view of the pelvis and two views of each hip were obtained. COMPARISON: None. FINDINGS: Bone alignment is normal. There is no fracture. There is mild osteoarthritis of the hips. C alcified atherosclerosis is noted. IMPRESSION: 1. Mild osteoarthritis of the hips. Reviewed, dictated and finalized at location B. P MANAGING DIRECTOR
== END 2023-09-26 13:31 | disposition home or self-care (01) ==
PROVIDERS: PCP Family Medicine; Visit Provider Family Medicine
DX: M16.0 Bilateral primary osteoarthritis of hip (principal); G89.29 Other chronic pain
CPT/HCPCS: 73521

== ENCOUNTER 2023-12-18 15:35 | Outpatient (CLI) | payer MEDICARE, SELFPAY ==
--- NOTE | ~2023-12-18 | MR_ITS ---
MRI of the lumbar spine Clinical History: Radiculopathy Technique: Axial T2-weighted images, and sagittal T1-weighted, T2-weighted, and T2 fat-sat images wer e acquired. Findings: No acute fracture identified. There is 6 mm retrolisthesis of L3 over L2. There is 5 mm ret rolisthesis of L2 over L3. There is 4 mm retrolisthesis of L4 over L5. There are reactive marrow sign al changes about the L1-L2 disc space due to underlying degenerative disc disease. At L1-L2, there is severe degenerative disc narrowing. There is minimal disc bulge and moderate to ad vanced facet arthropathy. No central canal stenosis. There is moderate left neural foraminal narrowin g. Right neural foramen preserved. At L2-L3, there is mild disc bulge and advanced facet arthropathy. No central canal stenosis. There i s moderate to severe left neural foraminal narrowing, and mild right neural foraminal narrowing. At L3-L4, there is diffuse disc bulge and severe facet arthropathy, resulting in moderate spinal dewayne l stenosis/thecal sac compression. There is severe bilateral neural foraminal narrowing, right worse than left. At L4-L5, there is severe degenerative disc narrowing. Disc bulge and severe facet arthropathy result in moderate to severe spinal canal stenosis/thecal sac compression. There is severe bilateral neural foraminal narrowing, right worse than left. At L5-S1, there is severe degenerative disc narrowing. Disc bulge and severe facet arthropathy are pr esent. No kecia central canal stenosis. There is severe left neural foraminal narrowing, and mild to moderate right neural foraminal narrowing. Paravertebral soft tissues are unremarkable. Impression: Severe degenerative spondylosis, with multilevel spinal canal stenosis or neural foraminal narrowing, as detailed above. 6 mm retrolisthesis of L3 over L2. 5 mm listhesis of L2 over L3. 4 mm retrolisthesis of L4 over L5. Reviewed, dictated and finalized at location M. Impression: Severe degenerative spondylosis, with multilevel spinal canal stenosis or neura l foraminal narrowing, as detailed above. 6 mm retrolisthesis of L3 over L2. 5 mm listhesis of L2 over L3. 4 mm retrolisthesis of L4 over L5.
== END 2023-12-18 15:36 ==
PROVIDERS: PCP Orthopaedic Surgery; Visit Provider Orthopaedic Surgery
DX: M47.26 Other spondylosis with radiculopathy, lumbar region (principal)
CPT/HCPCS: 72148

== ENCOUNTER 2024-01-05 13:52 | Outpatient (CLI) | payer MEDICARE, SELFPAY ==
[2024-01-05 14:45] LABS: Hematocrit 47.5 % (42.0-52.0); Hemoglobin 15.2 g/dL (14.0-18.0); Mean Corpuscular Hemoglobin 31.7 pg (26-34); Mean Corpuscular Volume 99.2 fl (80-100); Mean Platelet Volume 11.4 fl (7.4-10.4); Platelet Count Result 177 k/mm3 (150-375); Red Blood Count 4.79 M/mm3 (4.6-6.20); Red Cell Distribution Width 11.9 % (11.5-14.5); White Blood Count 7.3 K/mm3 (4.5-10.0)
[2024-01-05 14:53] LABS: Alanine Aminotransferase 25 U/L (6-50); Albumin Level 4.4 g/dL (3.5-5.1); Alkaline Phosphatase 68 U/L (38-126); Anion Gap 4 mmol/L (4-12); Aspartate Amino Transferase 24 U/L (17-59); Bilirubin,Total 0.4 mg/dL (0.2-1.3); Blood Urea Nitrogen 12 mg/dL (9-20); Calcium 9.1 mg/dL (8.4-10.2); Carbon Dioxide 32 mmol/L (22-30); Chloride 105 mmol/L (98-107); Cholesterol 164 mg/dL (0-200); Estimated Glomerular Filt Rate > 60; Glucose 93 mg/dL (65-110); HDL Direct 37 mg/dL; Potassium 4.5 mmol/L (3.4-5.0); Sodium 141 mmol/L (137-145); Triglycerides 119 mg/dL (<150)
[2024-01-05 15:04] LABS: LDL Cholesterol Direct 114 mg/dL
== END 2024-01-05 13:53 | disposition home or self-care (01) ==
PROVIDERS: PCP Orthopaedic Surgery; Visit Provider Family Medicine
DX: B19.20 Unspecified viral hepatitis C without hepatic coma (principal); N52.9 Male erectile dysfunction, unspecified; E78.5 Hyperlipidemia, unspecified
CPT/HCPCS: 36415; 80053; 80061; 85027

== ENCOUNTER 2024-01-08 10:14 | Outpatient (CLI) | payer MEDICARE, SELFPAY | END 2024-01-08 10:15 | disposition home or self-care (01) | PROVIDERS: PCP Orthopaedic Surgery | DX: R39.15 Urgency of urination (principal) | CPT/HCPCS: 87086 ==

== ENCOUNTER 2024-07-09 14:55 | Outpatient (CLI) | payer MEDICARE, SELFPAY ==
[2024-07-09 08:53] LABS: Hematocrit 36.3 % (42.0-52.0); Hemoglobin 11.8 g/dL (14.0-18.0); Mean Corpuscular HGB Conc 32.5 g/dl (32-36); Mean Corpuscular Hemoglobin 33.1 pg (26-34); Mean Corpuscular Volume 101.7 fl (80-100); Mean Platelet Volume 9.6 fl (7.4-10.4); Platelet Count Result 257 k/mm3 (150-375); Red Blood Count 3.57 M/mm3 (4.6-6.20); White Blood Count 5.8 K/mm3 (4.5-10.0)
[2024-07-09 11:04] LABS: Alanine Aminotransferase 22 U/L (6-50); Alkaline Phosphatase 81 U/L (38-126); Anion Gap 6 mmol/L (4-12); Aspartate Amino Transferase 28 U/L (17-59); Bilirubin,Total 0.5 mg/dL (0.2-1.3); Blood Urea Nitrogen 14 mg/dL (9-20); Calcium 8.9 mg/dL (8.4-10.2); Carbon Dioxide 27 mmol/L (22-30); Chloride 107 mmol/L (98-107); Estimated Glomerular Filt Rate > 60; Glucose 102 mg/dL (65-110); Sodium 140 mmol/L (137-145)
[2024-07-09 15:44] LABS: Potassium 4.3 mmol/L (3.4-5.0)
== END 2024-07-09 14:56 | disposition home or self-care (01) ==
PROVIDERS: Nurse Practitioner Family; PCP Family Medicine; Visit Provider Family Medicine
DX: B19.20 Unspecified viral hepatitis C without hepatic coma (principal); F10.11 Alcohol abuse, in remission; F43.10 Post-traumatic stress disorder, unspecified; F90.9 Attention-deficit hyperactivity disorder, unspecified type; K21.9 Gastro-esophageal reflux disease without esophagitis; N40.0 Benign prostatic hyperplasia without lower urinary tract symptoms; E87.5 Hyperkalemia
CPT/HCPCS: 36415; 80053; 84132; 85027

== ENCOUNTER 2025-01-14 13:57 | Outpatient (CLI) | payer MEDICARE, SELFPAY ==
--- OUTSIDE RECORDS SUMMARY | 2025-01-14 14:01 | XMS_ITS | Clinical Summary ---
Author Organization [facility] Address [address] [place] [address] Care Team Providers Care Casting Assistant Name Role Phone Eduardo Pearson MD Primary Care Provider [phone] Murray Zaragoza MD Unavailable Allergies No known active allergies Medications diazePAM (VALIUM) 5 mg tablet Take 1 tablet (5 mg total) by mouth 2 (two) times a day as needed 2 7 Active dextroamphetamin e-amphetamine XR (ADDERALL XR) 25 mg 24 hr capsule Take 1 capsule (25 mg total) by mouth every morning 0 7 Active sildenafiL (VIAGRA) 100 mg tabletIndication s:Erectile Dysfunction Take 1 tablet (100 mg total) by mouth daily as needed for erectile dysfunction (max 1 daily) 20 tablet 11 2 Active Additional Information Patient not taking.Reported on 06/10/2024 multivitamin with minerals tablet Take 1 tablet by mouth every morning Active cyanocobalamin (Vitamin B-12) 100 mcg tabletIndication s:Prevention of Vitamin B12 Deficiency Take 1 tablet (100 mcg total) by mouth every morning Active psyllium husk (METAMUCIL ORAL) Take 1 Scoop by mouth daily as needed Active Active Problems Problem Noted Date Diagnosed Date ED (erectile dysfunction) 06/21/2024 Erectile dysfunction due to diseases classified elsewhere 05/25/2024 Tobacco use disorder 03/24/2018 Malignant neoplasm of prostate 08/15/2017 ED (erectile dysfunction) of organic origin 07/30 Surgical History Surgery Date Site/Laterality Comments LAPAROSCOPIC GASTROTOMY W/ REPAIR OF ULCER PROSTATE SURGERY 09/29/2017 - 09/28/2018 prostatectomy EYE SURGERY Right cataract COLONOSCOPY Medical History Medical History Date Comments GERD (gastroesophageal reflux disease) ADHD (attention deficit hyperactivity disorder) Arthritis Cancer (HCC) prostate Vertigo Cataract COPD (chronic obstructive pulmonary disease) (HC C) Chronic low back pain Psoriasis Family History Medical History Relation Name Comments Alzheimer's disease Father Relation Name Status Comments Father Mother Alive Social History Tobacco Use Types Packs/Day Years Used Date Smoking Tobacco: Every Day Cigarettes Smokeless Tobacco: Never Tobacco Cessation:Counseling Given: Not Answered Comments:Quit smoking in November 2023 and now uses nicotine pouches, which he is trying to quit; Alcohol Use Standard Drinks/Week Comments Yes 0 (1 standard drink = 0.6 oz pur e alcohol) 4 beers daily AUDIT-C Answer Date Recorded Q1: How often do you have a drink containing alcohol? 4 or more times a week 06/21/2024 Q2: How many drinks containi ng alcohol do you have on a typical day when you are drinking? 3 or 4 Q3: How often do you have si x or more drinks on one occasion? Monthly 06/21/2024 Personal Safety Answer Date Recorded Have you ever been in or are you currently in a harmful physical or emotional relationship or is someone making you feel afraid or unsafe? 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 Gender Identity Not on file Sexual Orientation Not on file Obstetrics History Last Filed Vital Signs Vital Sign Reading Time Taken Comments Blood Pressure 123/80 06/28/2024 2:01 PM CDT Pulse 79 06/28/2024 2:01 PM CDT Temperature 36.1 C (97 F) 06/28/2024 2:01 PM CDT Respiratory Rate 17 06/23/2024 7:45 AM CDT Oxygen Saturation 96% 06/23/2024 7:45 AM CDT Inhaled Oxygen Concentration - - Weight 64.4 kg (142 lb) 06/21/2024 6:15 AM CDT Height 160 cm (5' 3 ) 06/21/2024 6:15 AM CDT Body Mass Index 25.15 06/21/2024 6:15 AM CDT Plan of Treatment Health Maintenance Due Date Last Done Comments Depression Screening 1948 Hepatitis C Screening 1948 Hepatitis B Screening 1966 Pneumococcal vaccine 65+ (1 of 2 - PCV) 1967 Zoster Vaccine (1 of 2) 1998 Well Visit 65+ 2013 Covid-19 Vaccine (3 - season) 2024, 12/04/2020 Influenza Vaccine (#1) 2024 Fall Risk Assessment 06/23/2025 06/23/2024 DTaP/Tdap/Td Vaccine (2 - Td or Tdap) 07/03/203101/2021 Abdominal Aortic Aneurysm (AAA) Screen Completed Medical Devices Implanted Type Area Vehicle Care Specialist Device Identifier Shelf Expiration Date Model / Serial / Lot [employer]ee Surgical Sling Advance Xp Incont Urinary 779705-01 - [id number] Implanted:Qty: 1 on 06/21/2024 by Murray Zaragoza MD at [facility] [employer] 06/29/2026 [id number] / / [id number] 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 Ams 700 Kit Accessory Penile Prosthesis [id number] - [id number] Implanted:Qty: 1 on 06/21/2024 by Murray Zaragoza MD at [facility] [employer] 05/27/2029 [id number] / / [id number] [employer]ee Ams Spectra 12/14mm 1cm Cylinder Concealable Malleable Rear Tip [id number] - [id number] Implanted:Qty: 1 on 06/21/2024 by Murray Zaragoza MD at [facility] [employer] 02/22/2029 [id number] / / [id number] [employer]ee Ams 700 Lgx Ms Pump 15cm 3 Piece Inflatable Preconnect Infrapubic [id number] - [id number] Implanted:Qty: 1 on 06/21/2024 by Murray Zaragoza MD at [facility] [employer] 11/25/2024 [id number] / / [id number] Attorney[employer]ee Ams 700 Ms Pump Preconnect Inflatable [place] Prosthesis 65ml [id number] - [id number] Implanted:Qty: 1 on 06/21/2024 by Murray Zaragoza MD at [facility] [employer] 11/26/2025 [id number] / / [id number] Procedures Procedure Name Priority Date/Time Associated Diagnosis Comments CT ABDOMEN PELVIS WO CONTRAST ED Urgent/IP Urgent 06/21/2024 6:30 PM CDT from Last 3 Months or Most Recently Relevant to Health Maintenance Results * CT Abdomen Pelvis WO Contrast (06/21/2024 6:30 PM CDT) Anatomical Region Laterality Modality Body N/A Computed Tomogra phy 06/21/2024 6:53 PM CDT Impressions 06/22/2024 8:30 AM CDT . Penile implant with moderate scrotal hematoma. Mild bilateral inguinal fat stranding/hematoma and gas droplets, worse left extending into the scrotum , perineum and abductor musculature consistent postoperative change. No pelvic or retroperitoneal hematoma. Mild gastric distention. Marked colonic diverticulosis with moderate stool burden. Ectatic right common iliac artery. Multilevel lumbar disc degeneration. Electronically signed by: Preeti Andujar M.D. Narrative 06/22/2024 8:30 AM CDT EXAM: CT ABDOMEN AND PELVIS WITHOUT CONTRAST: Date:06/21/2024 6:25 PM HISTORY:Abdominal pain, fever, post-op Post op pelvic bleeding. 73 yo WM s/p penile implant with significant bloody output from pelvic drain. TECHNIQUE: CT of the abdomen/pelvis was performed without intravenous contrast medium utilizing standard protocol and reconstructed into 3 mm axial, coronal, and sagittal images utilizing soft tissue and bone filters. The lack of intravenous contrast medium limits the evaluation for focal visceral lesions and intravascular pathology. COMPARISON: None. FINDINGS: Motion and absence of intravenous contrast limits assessment. The visualized lung bases are clear. Unenhanced appearance of the liver, spleen, gallbladder pancreas and adrenals is grossly unremarkable in limitations of motion No biliary distention noted. . The kidneys are not well assessed due to motion but there is right renal sinus vascular calcification. No definite nephrolithiasis or hydronephrosis is seen. There is mild nonspecific perinephric fat stranding. Marked calcified atherosclerotic nonaneurysmal aorta is seen. Ectatic 1.7 cm diameter right common iliac artery is seen. Mild gastric distention with moderate fluid is seen.. Colonic diverticulosis worse in the sigmoid and descending colon with moderate stool burden is noted..The appendix is unremarkable..No small bowel obstruction noted. There is no pneumoperitoneum or ascites. Decompressed urinary bladder with Carlos catheter and mild nondependent gas is noted.. The prostate is absent. Penile implant is seen with reservoir in the left lower pelvis. Soft tissue thickening of the bilateral corpora cavernosa is seen with implants consistent postoperative change. A drain is seen in the left hemiscrotum. Moderate scrotal hematoma is noted measuring up to 2 cm in thickness. There is extensive ill-defined soft tissue density and fat stranding with gas droplets in the left inguinal fossa extending to the right inguinal and suprapubic region scrotum and perineum most consistent postoperative change. Acute gas droplets extend into the proximal thigh and abductor musculature worse left probably also postoperative change. There is no pelvic or retroperitoneal hematoma seen. Marked disc degeneration narrowing and osteophyte with vacuum phenomenon noted at L1-2, L4-5 and L5-S1.. Findings discussed with Dr. Zaragoza by Dr. Andujar on and 17/12/2023 at 6:40 PM. Procedure Note Preeti Andujar MD - 06/22/2024 EXAM: CT ABDOMEN AND PELVIS WITHOUT CONTRAST: Date:06/21/2024 6:25 PM HISTORY:Abdominal pain, fever, post-op Post op pelvic bleeding. 73 yo WM s/p penile implant with significant bloody output from pelvic drain. TECHNIQUE: CT of the abdomen/pelvis was performed without intravenous contrast medium utilizing standard protocol and reconstructed into 3 mm axial, coronal, and sagittal images utilizing soft tissue and bone filters. The lack of intravenous contrast medium limits the evaluation for focal visceral lesions and intravascular pathology. COMPARISON: None. FINDINGS: Motion and absence of intravenous contrast limits assessment. The visualized lung bases are clear. Unenhanced appearance of the liver, spleen, gallbladder pancreas and adrenals is grossly unremarkable in limitations of motion No biliary distention noted. . The kidneys are not well assessed due to motion but there is right renal sinus vascular calcification. No definite nephrolithiasis or hydronephrosis is seen. There is mild nonspecific perinephric fat stranding. Marked calcified atherosclerotic nonaneurysmal aorta is seen. Ectatic 1.7 cm diameter right common iliac artery is seen. Mild gastric distention with moderate fluid is seen.. Colonic diverticulosis worse in the sigmoid and descending colon with moderate stool burden is noted..The appendix is unremarkable..No small bowel obstruction noted. There is no pneumoperitoneum or ascites. Decompressed urinary bladder with Carlos catheter and mild nondependent gas is noted.. The prostate is absent. Penile implant is seen with reservoir in the left lower pelvis. Soft tissue thickening of the bilateral corpora cavernosa is seen with implants consistent postoperative change. A drain is seen in the left hemiscrotum. Moderate scrotal hematoma is noted measuring up to 2 cm in thickness. There is extensive ill-defined soft tissue density and fat stranding with gas droplets in the left inguinal fossa extending to the right inguinal and suprapubic region scrotum and perineum most consistent postoperative change. Acute gas droplets extend into the proximal thigh and abductor musculature worse left probably also postoperative change. There is no pelvic or retroperitoneal hematoma seen. Marked disc degeneration narrowing and osteophyte with vacuum phenomenon noted at L1-2, L4-5 and L5-S1.. Findings discussed with Dr. Zaragoza by Dr. Andujar on and 17/12/2023 at 6:40 PM. IMPRESSION: . Penile implant with moderate scrotal hematoma. Mild bilateral inguinal fat stranding/hematoma and gas droplets, worse left extending into the scrotum , perineum and abductor musculature consistent postoperative change. No pelvic or retroperitoneal hematoma. Mild gastric distention. Marked colonic diverticulosis with moderate stool burden. Ectatic right common iliac artery. Multilevel lumbar disc degeneration. Electronically signed by: Preeti Andujar M.D. Murray Zaragoza MD IMG CT PROCEDURES Final Result from Last 3 Months or Most Recently Relevant to Health Maintenance Insurance HUMANA CHOICE MEDICARE PPO HUMANA CHOICE MEDICARE PPO Advance Directives For more information, please contact: [phone] * Full Code (Latest Code Status on File) Date Activated Date Inactivated Comments 06/21/2024 2:10 PM 06/23/2024 4:00 PM * Full Code Date Activated Date Inactivated Comments 10/09/2017 7:29 PM 10/10/2017 1:50 PM Care Teams Casting Assistant Relationship Specialty Start Date End Date Eduardo Pearson MD PCP - General Family Practice 11/05/23 [place] [id number] [address] Consulting Physician Urology 06/23/24
--- OUTSIDE RECORDS SUMMARY | 2025-01-14 14:01 | XMS_ITS | Clinical Summary ---
Author Organization [facility] Address [address] [place] [address] Care Team Providers Care Glue Machine Operator Name Role Phone Junior Salas MD Primary Care Provider [phone] Source Comments [facility],non-owned Affiliates and Associated Physician Practices is amultiple site organization consisting of ambulatory clinics and hospital sitesin [place], [place], [place] and [place]. This disclosure is being madepursuant to the Care Everywhere program and may not contain all information available regarding this patient. 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[employer] Gender Identity Not on file Sexual Orientation Not on file Plan of Treatment Health Maintenance Due Date Last Done Comments HEPATITIS C SCREENING 08/15/1966 DTAP/TDAP/TD VACCINES (1 - Tdap) 1967 PNEUMOCOCCAL VACCINE 50+ (1 of 1 - PCV) 1998 ZOSTER VACCINE (1 of 2) 1998 Respiratory Syncytial Virus (RSV) Vaccine Pt: or over 60 yrs (1 - 1-dose 75+ series) 2023 COVID-19 VACCINE ( - 2023-2 5 season) 2024 DEPRESSION SCREENING 09/29/2024 MEDICARE AWV CALENDAR YEAR 2024 INFLUENZA VACCINE (Season Ended) 2025 HEPATITIS B VACCINE Aged Out No longe r eligible based on patient's age to complete this topic HIB VACCINE Aged Out No longer eligi ble based on patient's age to complete this topic HPV VACCINE Aged Out No longer eligi ble based on patient's age to complete this topic MENINGOCOCCAL (Group B) VACC INE SHARED DECISION-MAKING Aged Out No longer eligibl e based on patient's age to complete this topic MENINGOCOCCAL GROUPS A/C/Y/W VACCINE Aged Out No longer eligible b ased on patient's age to complete this topic Insurance HUMANA MEDICARE ADV HMO & PPO Care Teams Glue Machine Operator Relationship Specialty Start Date End Date Junior Salas MD [address] [place] [address] PCP - General 04/18/11
--- OUTSIDE RECORDS SUMMARY | 2025-01-14 14:01 | XMS_ITS | Referral Summary ---
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 Fifi 06/29/2026 [id number] / / [id number] [email or web address]. Fifi Ams 700 Kit Accessory Penile Prosthesis [id number] - [id number] Implanted:Qty: 1 on 06/21/2024 by Murray Zaragoza MD at [facility] [employer] [facility] 05/27/2029 [id number] / / [id number] Senior Home Care Scientific Fifi Ams Spectra 12/14mm 1cm Cylinder Concealable Malleable Rear Tip [id number] - [id number] Implanted:Qty: 1 on 06/21/2024 by Murray Zaragoza MD at [facility] [employer] [facility] 02/22/2029 [id number] / / [id number] [place] [employer] Fifi Ams 700 Lgx Ms Pump 15cm 3 Piece Inflatable Preconnect Infrapubic [id number] - [id number] Implanted:Qty: 1 on 06/21/2024 by Murray Zaragoza MD at [facility] [employer] [facility] 11/25/2024 [id number] / / [id number] Senior Home Care Scientific Hipster Ams 700 Ms Pump Preconnect Inflatable Enemy Swim Prosthesis 65ml [id number] - [id number] Implanted:Qty: 1 on 06/21/2024 by Murray Zaragoza MD at [facility] [employer] [facility] 11/26/2025 [id number] / / [id number] Procedures Procedure Name Priority Date/Time Associated Diagnosis [...] by: Preeti Andujar M.D. Murray Zaragoza MD IM CT PROCEDURES Final Result from Last 3 Months or Most Recently Relevant to Health Maintenance Insurance [employer] MEDICARE PPO [employer] MEDICARE PPO HUMANA CHOICE MEDICARE PPO Advance Directives For more information, please contact: [phone] * Full Code (Latest Code Status on File) Date Activated Date Inactivated Comments 06/21/2024 2:10 PM 06/23/2024 4:00 PM * Full Code Date Activated Date Inactivated Comments 10/09/2017 7:29 PM 10/10/2017 1:50 PM Care Teams Accounts Receivable Bookkeeper Relationship Specialty Start Date End Date Eduardo Pearson MD PCP - General Family Practice 11/05/23 [place] [address] [facility] [address] [place] [address] Consulting Physician Urology 06/23/24
--- OUTSIDE RECORDS SUMMARY | 2025-01-14 14:01 | XMS_ITS | Continuity of Care Document ---
Author Organization [facility] Address [address] [place] [address] Phone Care Team Providers Care Sweatband Drummer Name Role Phone Chau OD, Carorll Unavailable Unavailable Advance Directives Directive Yes / No Effective Date File Name No Information Encounters Encounter Description Practice Location Reason(s) For Visit Diagnoses Date Provider Providers Copied on Encounter [facility], [address], [place], [place], [id number], [place] tel:[phone] [facility] No Information Dec-1 1-200 2 Chau OD [place]. [address] , [address], [place], [address], [place]. tel:[phone] Family History Family Member Type Diagnosis Age At Onset No Information Payers Payer name Insurance type Covered democrat ID Authoriza tion(s) No Information Social History [...]
[2025-01-14 15:10] LABS: Hematocrit 44.5 % (42.0-52.0); Hemoglobin 14.1 g/dL (14.0-18.0); Mean Corpuscular HGB Conc 31.7 g/dl (32-36); Mean Corpuscular Hemoglobin 30.9 pg (26-34); Mean Corpuscular Volume 97.6 fl (80-100); Mean Platelet Volume 11.5 fl (7.4-10.4); Platelet Count Result 174 k/mm3 (150-375); Red Blood Count 4.56 M/mm3 (4.6-6.20); Red Cell Distribution Width 12.4 % (11.5-14.5); White Blood Count 8.1 K/mm3 (4.5-10.0)
[2025-01-14 15:34] LABS: Iron 107 ug/dL (49-181)
[2025-01-14 15:43] LABS: Percent Iron Saturation 35 % (20-50)
[2025-01-14 15:56] LABS: Prostate Specific Antigen < 0.1 ng/mL (< OR = 4.0)
== END 2025-01-14 13:58 | disposition home or self-care (01) ==
PROVIDERS: PCP Family Medicine; Visit Provider Family Medicine
DX: Z12.5 Encounter for screening for malignant neoplasm of prostate (principal); D64.9 Anemia, unspecified; N40.0 Benign prostatic hyperplasia without lower urinary tract symptoms; B19.20 Unspecified viral hepatitis C without hepatic coma; Z85.46 Personal history of malignant neoplasm of prostate
CPT/HCPCS: 36415; 82607; 83540; 83550; 84153; 85027; G0103

== ENCOUNTER 2025-05-24 09:17 | Outpatient (CLI) | payer MEDICARE, SELFPAY ==
--- OUTSIDE RECORDS SUMMARY | 2002-09-07 19:00 | XMS_ITS | Continuity of Care Document ---
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 [address] , [address], [place], [address], [place]. tel:[phone] Family History Family Member Type Diagnosis Age At Onset No Information Payers Payer name Insurance type Covered green party ID Authoriza tion(s) No Information Social History Type Description Quantity Date Captured Comments Sex Male Smoking Status No Information Chief Complaint And Reason For Visit No Information Reason For Referral Reason For Referral No Information History Of Present Illness Encounter Date Complaint History Of Prese nt Illness No Information Functional Status Date Functional Assessmen t No Information Instructions Date Instruction Additional Infor mation No Information Assessments Type Assessment Date No Information Patient Care Teams Name Effective Dates (start - stop) Status Members No Information
--- OUTSIDE RECORDS SUMMARY | 2025-05-24 09:20 | XMS_ITS | Clinical Summary ---
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 Gender Identity Not on file Sexual Orientation [...] 6:15 AM CDT Height 160 cm (5' 3) 06/21/2024 6:15 AM CDT Body Mass Index 25.15 06/21/2024 6:15 AM CDT Plan of Treatment Health Maintenance Due Date Last Done Comments Depression Screening 1948 Hepatitis C Screening 1948 Hepatitis B Screening 1966 Pneumococcal vaccine 65+ (1 of 2 - PCV) 1967 Zoster Vaccine (1 of 2) 1998 Well Visit 65+ 2013 Covid-19 Vaccine (3 - 2023- season) 2024, 12/04/2020 Influenza Vaccine (#1) 2025 Fall Risk Assessment 06/23/2025 06/23/2024 DTaP/Tdap/Td Vaccine (2 - Td or Tdap) 07/03/203101/2021 Abdominal Aortic Aneurysm (AAA) Screen Completed Medical Devices Implanted Type Area Pharmacologist Device Identifier Shelf Expiration Date Model / Serial / Lot Handmark Surgical Sling Advance Xp Incont Urinary 483712-97 - [id number] Implanted:Qty: 1 on 06/21/2024 by Murray Zaragoza MD at [facility] [employer] 06/29/2026 [id number] / / [id number] [employer] Ams 700 Kit Accessory Penile Prosthesis [id number] - [id number] Implanted:Qty: 1 on 06/21/2024 by Murray Zaragoza MD at [facility] [employer] 05/27/2029 [id number] / / [id number] [employer] Ams Spectra 12/14mm 1cm Cylinder Concealable Malleable Rear Tip [id number] - [id number] Implanted:Qty: 1 on 06/21/2024 by Murray Zaragoza MD at [facility] [employer] 02/22/2029 [id number] / / [id number] [employer] Ams 700 Lgx Ms Pump 15cm 3 Piece Inflatable Preconnect Infrapubic [id number] - [id number] Implanted:Qty: 1 on 06/21/2024 by Murray Zaragoza MD at [facility] [employer] 11/25/2024 [id number] / / [id number] [employer] Ams 700 Ms Pump Preconnect Inflatable [place] Prosthesis 65ml [id number] - [id number] Implanted:Qty: 1 on 06/21/2024 by Murray Zaragoza MD at [facility] [employer] 11/26/2025 [id number] / / [id number] Procedures Procedure Name Priority Date/Time Associated Diagnosis [...] Health Maintenance Insurance HUMANA CHOICE MEDICARE PPO Advance Directives For more information, please contact: [phone] * Full Code (Latest Code Status on File) Date Activated Date Inactivated Comments 06/21/2024 2:10 PM 06/23/2024 4:00 PM * Full Code Date Activated Date Inactivated Comments 10/09/2017 7:29 PM 10/10/2017 1:50 PM Care Teams Croze Machine Operator Relationship Specialty Start Date End Date Eduardo Pearson MD PCP - General Family Practice 11/05/23 [place] [address] [address] Consulting Physician Urology 06/23/24
--- OUTSIDE RECORDS SUMMARY | 2025-05-24 09:20 | XMS_ITS | Clinical Summary ---
Author Organization [facility] Address [address] [place] [address] Care Team Providers Care Director Of Cardiac Rehabilitation Name Role Phone Junior Salas MD Primary Care Provider [phone] Source Comments [facility],non-owned Affiliates and Associated Physician Practices is amultiple site organization consisting of ambulatory clinics and hospital sitesin [place], [place], [place] and [place]. This disclosure is being madepursuant to the Care Everywhere program and may not contain all information available regarding this patient. 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
[2025-05-24 09:53] LABS: Hematocrit 48.7 % (42.0-52.0); Hemoglobin 15.8 g/dL (14.0-18.0); Mean Corpuscular HGB Conc 32.4 g/dl (32-36); Mean Corpuscular Hemoglobin 31.3 pg (26-34); Mean Corpuscular Volume 96.6 fl (80-100); Platelet Count Result 181 k/mm3 (150-375); Red Blood Count 5.04 M/mm3 (4.6-6.20); White Blood Count 6.4 K/mm3 (4.5-10.0)
[2025-05-24 10:26] LABS: Add Urine Microscopic? NO; Appearance Urine Clear (Clear); Glucose Urine UA Negative (Negative); Leukocyte Esterase Ur Negative LEU/UL (Negative); Nitrate Urine Negative (Negative); Specific Grav Ur 1.012 (1.001-1.035)
[2025-05-24 10:57] LABS: Thyroid Stimulating Hormone 1.800 uIU/mL (0.465-4.680)
[2025-05-24 11:34] LABS: Vitamin B12 290.0 pg/mL (239-931)
[2025-05-31 13:08] LABS: Free Testosterone (Direct) 4.8 pg/mL (6.6-18.1)
== END 2025-05-24 09:18 | disposition home or self-care (01) ==
PROVIDERS: PCP Family Medicine; Visit Provider Family Medicine
DX: R00.2 Palpitations (principal); R53.83 Other fatigue; D64.9 Anemia, unspecified; G56.03 Carpal tunnel syndrome, bilateral upper limbs; B19.20 Unspecified viral hepatitis C without hepatic coma; E55.9 Vitamin D deficiency, unspecified
CPT/HCPCS: 36415; 81003; 82306; 82607; 84402; 84403; 84443; 85027; 87086

== ENCOUNTER 2025-07-20 11:34 | Outpatient (CLI) | payer MEDICARE, SELFPAY ==
--- NOTE | 2025-08-03 11:06 | WPDHOLTEREM ---
Holter/Event Monitor Holter/Event Monitor Date of procedure: 07/20/25 Holter/Event Procedure: 3-7 Day Holter Monitor Indications: Palpitations Conclusion: 1. 7 days holter monitor on 07/20/25. 2. Predominant rhythm is sinus rhythm. HR range 46-136 bpm; average HR 65 bpm. 3. There are rare premature supraventricular complexes, rare supraventricular couplets, and rare supraventricular triplets. There are 2 episodes of supraventricular tachycardia with fastest at 136 bpm and longest lasting 4 beats. 4. There are rare premature ventricular complexes. No ventricular tachycardia. 5. No significant pauses greater than 3 seconds. 6. Patient reports 3 episodes of symptoms of fluttering, dizziness which demonstrate sinus rhythm, HR range 50-68 bpm.
== END 2025-07-20 11:35 | disposition home or self-care (01) ==
LOC: ANHCARD 11:37
PROVIDERS: PCP Family Medicine; Visit Provider Family Medicine
DX: I49.1 Atrial premature depolarization (principal); I47.10 Supraventricular tachycardia, unspecified; I49.3 Ventricular premature depolarization; D64.9 Anemia, unspecified
CPT/HCPCS: 93242